=== PATIENT | male | born 1960 | race Caucasian/White ===

== ENCOUNTER 2018-06-15 11:03 | Emergency (ER) | payer BC, MEDICAID ==
--- NOTE | 2018-06-15 11:49 | EDM.PDOC ---
<Julian Murguiae - Last Filed: 06/15/18 13:59> ED HPI GENERAL MEDICAL PROBLEM - General Chief Complaint: Gastrointestinal Problem Stated Complaint: GAS/CHEST PAIN Time Seen by Provider: 06/15/18 11:40 - Related Data Allergies Allergy/AdvReac Type Severity Reaction Status Date / Time codeine Allergy Hallucinati Verified 06/15/18 11:26 ons Home Meds: Home Meds NK [No Known Home Meds] 06/15/18 [History] Course - Vital Signs Last Recorded V/S: Last Vital Signs Temp 36.8 C 06/15/18 11:27 Pulse 76 06/15/18 11:27 Resp 17 06/15/18 11:27 BP 166/87 H 06/15/18 11:27 Pulse Ox 97 06/15/18 11:27 - Orders/Labs/Meds Orders: Active Orders 24 hr Category Date Time Status EKG Documentation Completion [RC] ASDIRECTED Care 06/15/18 11:55 Active EKG 12 Lead [EK] Routine Ther 06/15/18 11:53 Ordered Labs: Laboratory Tests 06/15/18 06/15/18 06/15/18 Range/Units 12:03 12:03 12:29 WBC 4.2 L (4.5-11.0) K/uL RBC 4.78 (4.30-5.90) M/uL Hgb 14.9 (12.0-15.0) g/dL Hct 44.8 (40.0-54.0) % MCV 94 (80-98) fL MCH 31 (27-31) pg MCHC 33 (32-36) % Plt Count 262 (150-400) K/uL Sodium 140 (140-148) mmol/L Potassium 4.1 (3.6-5.2) mmol/L Chloride 102 (100-108) mmol/L Carbon Dioxide 27 (21-32) mmol/L Anion Gap 10.7 (5.0-14.0) mmol/L BUN 8 (7-18) mg/dL Creatinine 0.8 (0.8-1.3) mg/dL Est Cr Clr Drug Dosing 106.34 mL/min Estimated GFR (MDRD) > 60 (>60) Glucose 91 (74-106) mg/dL Calcium 9.7 (8.5-10.1) mg/dL Total Bilirubin 0.2 (0.2-1.0) mg/dL AST 14 L (15-37) U/L ALT 21 (12-78) U/L Alkaline Phosphatase 65 (46-116) U/L Troponin I < 0.017 (0.000-0.056) ng/mL C-Reactive Protein 0.03 (0.0-0.3) mg/dL Total Protein 7.2 (6.4-8.2) g/dL Albumin 3.5 (3.4-5.0) g/dL Globulin 3.7 H (2.3-3.5) g/dL Albumin/Globulin Ratio 1.0 L (1.2-2.2) Lipase 150 (73-393) U/L Meds: Medications Discontinued Medications Generic Name Dose Route Start Last Admin Trade Name Freq PRN Reason Stop Dose Admin Al Hydroxide/Mg Hydroxide 15 0 ml 06/15/18 12:52 06/15/18 13:03 ml/ Lidocaine HCl 15 ml PO 06/15/18 12:53 15 ml ONETIME ONE Administration Pantoprazole Sodium 40 mg 06/15/18 13:51 06/15/18 13:59 Protonix PO 06/15/18 13:52 40 mg DAILY ONE Administration Departure - Departure Time of Disposition: 14:00 Disposition: Home, Self-Care 01 Clinical Impression: Gastrointestinal irritation - Discharge Information Instructions: Viral Gastroenteritis, Adult, [id number] Referrals: PCP,None [Primary Care Provider] - Forms: ED Department Discharge Care Plan Goals: frequent small meals, protonix 20mg daily rtc for gastroscoping and colonoscopy. - My Orders Last 24 Hours: My Active Orders 06/15/18 11:53 EKG 12 Lead [EK] Routine 06/15/18 11:55 EKG Documentation Completion [RC] ASDIRECTED - Assessment/Plan Last 24 Hours: My Active Orders 06/15/18 11:53 EKG 12 Lead [EK] Routine 06/15/18 11:55 EKG Documentation Completion [RC] ASDIRECTED <Jillian Astorga - Last Filed: 06/15/18 14:36> ED HPI GENERAL MEDICAL PROBLEM - History of Present Illness INITIAL COMMENTS - FREE TEXT/NARRATIVE: Aniket Guzman is a 58 year old male who presents to the E.D. with concerns of belching, flatulence, and abdominal discomfort for about 1 week. He states that a cold preceded his symptoms. He indicates being diagnosed with GERD 8 years ago , but discontinued his medications 4 years ago. He states he has not been to a healthcare provider in over 5 years. He now states that he does not take any current medications. He is trying to treat his current symptoms of Rolaids. He states he does experience some acid reflux when he had coughing spells. He denies that eating makes it better or worse. He states physical activity does exacerbate his symptoms. He states bowel movements have been normal as well as urination. He also has had chest pain that it waxing and waning for 2 days. He notes the pain radiates into his left arm and his arm goes numb. He denies that it is crushing pain, it is more of a discomfort. He does smoke two packs of cigarettes per day. Lower Abdominal Pain Score (Numeric/FACES): 4 Past Medical History - Past Surgical History GI Surgical History: Reports: Hernia, Inguinal Musculoskeletal Surgical History: Reports: Arthroscopic Knee Social & Family History - Tobacco Use Smoking Status *Q: Heavy Tobacco Smoker Years of Tobacco use: 20 Packs/Tins Daily: 2 - Caffeine Use Caffeine Use: Reports: Tea - Alcohol Use Days Per Week of Alcohol Use: 7 Number of Drinks Per Day: 4 Total Drinks Per Week: 28 - Recreational Drug Use Recreational Drug Use: No ED ROS GENERAL - Review of Systems Review Of Systems: See Below Constitutional: Reports: Fatigue. Denies: Fever HEENT: Reports: Glasses Respiratory: Reports: Shortness of Breath, Wheezing, Cough Cardiovascular: Reports: Chest Pain, Dyspnea on Exertion. Denies: Edema GI/Abdominal: Reports: Abdominal Pain, Flatus. Denies: Bloody Stool, Constipation, Diarrhea, Decreased Appetite, Hematemesis, Nausea : Denies: Discharge, Dysuria, Frequency, Hematuria Skin: Denies: Rash, Erythema Neurological: Reports: No Symptoms ED EXAM, GI/ABD - Physical Exam Exam: See Below Exam Limited By: No Limitations General Appearance: Alert, No Apparent Distress Ears: Normal External Exam, Normal Canal, Normal TMs Nose: Normal Inspection Throat/Mouth: Normal Lips, Normal Gums, Other (Positive for erythematous pharygnx and uvula with mild exudate) Head: Atraumatic, Normocephalic Neck: Normal Inspection, Supple, Non-Tender, Full Range of Motion Respiratory/Chest: No Respiratory Distress, Wheezing. No: Accessory Muscle Use , Retractions Cardiovascular: Regular Rate, Rhythm, No Edema GI/Abdominal Exam: Normal Bowel Sounds, Soft, Other (Positive for tenderness of middle, upper quadrant) Psychiatric: Normal Affect, Normal Mood Skin Exam: Warm, Dry Course - Orders/Labs/Meds Orders: Active Orders 24 hr Category Date Time Status EKG Documentation Completion [RC] ASDIRECTED Care 06/15/18 11:55 Active EKG 12 Lead [EK] Routine Ther 06/15/18 11:53 Ordered Labs: Laboratory Tests 06/15/18 06/15/18 06/15/18 Range/Units 12:03 12:03 12:29 WBC 4.2 L (4.5-11.0) K/uL RBC 4.78 (4.30-5.90) M/uL Hgb 14.9 (12.0-15.0) g/dL Hct 44.8 (40.0-54.0) % MCV 94 (80-98) fL MCH 31 (27-31) pg MCHC 33 (32-36) % Plt Count 262 (150-400) K/uL Sodium 140 (140-148) mmol/L Potassium 4.1 (3.6-5.2) mmol/L Chloride 102 (100-108) mmol/L Carbon Dioxide 27 (21-32) mmol/L Anion Gap 10.7 (5.0-14.0) mmol/L BUN 8 (7-18) mg/dL Creatinine 0.8 (0.8-1.3) mg/dL Est Cr Clr Drug Dosing 106.34 mL/min Estimated GFR (MDRD) > 60 (>60) Glucose 91 (74-106) mg/dL Calcium 9.7 (8.5-10.1) mg/dL Total Bilirubin 0.2 (0.2-1.0) mg/dL AST 14 L (15-37) U/L ALT 21 (12-78) U/L Alkaline Phosphatase 65 (46-116) U/L Troponin I < 0.017 (0.000-0.056) ng/mL C-Reactive Protein 0.03 (0.0-0.3) mg/dL Total Protein 7.2 (6.4-8.2) g/dL Albumin 3.5 (3.4-5.0) g/dL Globulin 3.7 H (2.3-3.5) g/dL Albumin/Globulin Ratio 1.0 L (1.2-2.2) Lipase 150 (73-393) U/L Meds: Medications Discontinued Medications Generic Name Dose Route Start Last Admin Trade Name Freq PRN Reason Stop Dose Admin Al Hydroxide/Mg Hydroxide 15 0 ml 06/15/18 12:52 06/15/18 13:03 ml/ Lidocaine HCl 15 ml PO 06/15/18 12:53 15 ml ONETIME ONE Administration Pantoprazole Sodium 40 mg 06/15/18 13:51 06/15/18 13:59 Protonix PO 06/15/18 13:52 40 mg DAILY ONE Administration - My Orders Last 24 Hours: My Active Orders 06/15/18 11:53 EKG 12 Lead [EK] Routine 06/15/18 11:55 EKG Documentation Completion [RC] ASDIRECTED - Assessment/Plan Last 24 Hours: My Active Orders 06/15/18 11:53 EKG 12 Lead [EK] Routine 06/15/18 11:55 EKG Documentation Completion [RC] ASDIRECTED
[2018-06-15] MEDS ORDERED: Alum Hydrox/Mag Hydrox/Simeth 15 ML, Lidocaine 2% 15 ML PO ONE ×2 (12:52)
--- NOTE | 2018-06-15 13:00 | CRLCR ---
Abdominal discomfort. Multiple views of the abdomen and pelvis. Findings: Air-filled bowel loops to the level of the rectum. No abnormal masses or calcifications. Small stool burden. IMPRESSION: 1. Nonspecific nonobstructive bowel gas pattern with gas filled loops of small and large bowel. Dictated by Aundrea Guzman MD @ Jun 15 2018 12:58PM Signed by Dr. Aundrea Guzman @ Jun 15 2018 12:59PM
[2018-06-15] MEDS ORDERED: Pantoprazole 40 MG Tab.CR PO ONE (13:51)
== END 2018-06-15 14:14 | disposition home or self-care (01) ==
LOC: JP.ED 11:03
DX: K31.89 Other diseases of stomach and duodenum (principal); F17.210 Nicotine dependence, cigarettes, uncomplicated; Z88.5 Allergy status to narcotic agent
CPT/HCPCS: 36415; 74022; 80053; 83690; 84484; 85027; 86140; 93005; 99285; A9270